=== PATIENT | male | born 1955 | race Caucasian/White ===

== ENCOUNTER → 2020-12-20 02:52 | Outpatient (CLI) | payer BC, SELFPAY ==
[2020-12-21 18:57] LABS: SARS-CoV-2 RNA PCR Negative
== END ==
PROVIDERS: PCP Family Medicine; Visit Provider Family Medicine
DX: Z20.822 Contact with and (suspected) exposure to COVID-19 (principal)
CPT/HCPCS: C9803; U0003; U0005

== ENCOUNTER 2021-08-30 01:20 | Day surgery (SDC) | payer MEDICARE, SELFPAY ==
[2021-08-26 13:37] VITALS: BMI 28.0
--- NOTE | 2021-08-29 16:07 | PM.HPGS ---
History of Present Illness History of Present Illness Consent: Risks, benefits, and alternatives have been discussed and questions answered. Patient agrees to proceed with procedure. Chief complaint: dysphagia Narrative: Jony August is a 66 year old male who is having increasing difficulty with swallowing. He has a history having an esophageal stricture which was dilated 3 years ago. At that time was dilated up to 20 mm. 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 Review of Systems Review of Systems: All systems reviewed & are unremarkable except as noted in HPI and below PMFSH Past Medical History Medical History Hyperlipidemia Hypertension Inguinal hernia Schatzki's ring Umbilical hernia Surgical History Surgical History History of inguinal hernia repair History of umbilical hernia repair Normal endoscopy Family History Family History Father Patient's father is in good health Hypertension Family history of Parkinson's disease Family history of dementia Mother Family history of malignant neoplasm Social History Social History Smoking status: Never smoker Second hand tobacco smoke exposure: No Alcohol intake: current Drinks per week: 4 Alcohol use details: beer Substance use: never Substance use type: does not use Living arrangements: with family Gender identity (if verbalized by the patient): Male Sexual Orientation (if Verbalized by the Patient): Straight or Heterosexual Spiritual care concerns: No Meds Home Medications and Allergies Home Medications Medication Instructions Recorded Confirmed Type tadalafil 10 mg tablet 10 mg PO DAILY PRN #6 tablet 07/17/20 08/30/21 Rx amlodipine 5 mg tablet 5 mg PO DAILY #90 tablet 02/08/21 08/30/21 Rx omeprazole 40 mg capsule,delayed See Rx Instructions .ROUTE 03/11/21 08/30/21 Rx release .COMPLEX #90 cap carvedilol 12.5 mg tablet 12.5 mg PO BID #180 tablet 03/25/21 08/30/21 Rx lisinopril 20 mg tablet 20 mg PO DAILY #90 tablet 04/02/21 08/30/21 Rx simvastatin 10 mg tablet See Rx Instructions .ROUTE 04/08/21 08/30/21 Rx .COMPLEX #90 tablet tamsulosin 0.4 mg capsule See Rx Instructions .ROUTE 08/30/21 08/30/21 Rx .COMPLEX #90 cap Allergies Allergy/AdvReac Type Severity Reaction Status Date / Time No Known Allergies Allergy Verified 08/30/21 08:12 Exam Resp: Auscultation: clear to auscultation bilaterally Cardio: Rate: regular rate Rhythm: regular rhythm GI: GI Palp: Yes Soft to palpation and No Tenderness to palpation present (GI) Assessment and Plan Assessment and plan (1) Dysphagia: Code(s): R13.10 - Dysphagia, unspecified Status: Acute Assessment and Plan: EGD with possible biopsy or dilatation or cautery.
[2021-08-30 08:14] VITALS: BP 136/77; PULSE 75; RESP 16; TEMP 36.2; O2SAT 99; BMI 28.0
[2021-08-30] MEDS: LACTATED RINGERS 1,000 ML 150 ML IV CONT (08:22)
--- NOTE | 2021-08-30 09:18 | WPDANESEPPF ---
Anes - Initial Pre Proc Eval Procedure: Operation Date: 08/30/21 09:30 Proposed Procedures p Esophagogastroduodenoscopy - Paul Delacruz MD Date/Time: 08/30/21 09:18 Surgeon: Paul Delacruz MD Pre Op Diagnosis: dysphagia Patient Data Age: 66 Gender: M Height: 1.78 m Weight: 88.6 kg Last Vital Signs Temp 97.2 F L 08/30/21 08:14 Pulse 75 08/30/21 08:14 Resp 16 08/30/21 08:14 BP 136/77 08/30/21 08:14 Pulse Ox 99 08/30/21 08:14 Allergies Allergy/AdvReac Type Severity Reaction Status Date / Time No Known Allergies Allergy Verified 08/30/21 08:12 Home Medications Medication Instructions Recorded Confirmed Type tadalafil 10 mg tablet 10 mg PO DAILY PRN #6 tablet 07/17/20 08/30/21 Rx amlodipine 5 mg tablet 5 mg PO DAILY #90 tablet 02/08/21 08/30/21 Rx omeprazole 40 mg capsule,delayed See Rx Instructions .ROUTE 03/11/21 08/30/21 Rx release .COMPLEX #90 cap carvedilol 12.5 mg tablet 12.5 mg PO BID #180 tablet 03/25/21 08/30/21 Rx lisinopril 20 mg tablet 20 mg PO DAILY #90 tablet 04/02/21 08/30/21 Rx simvastatin 10 mg tablet See Rx Instructions .ROUTE 04/08/21 08/30/21 Rx .COMPLEX #90 tablet tamsulosin 0.4 mg capsule See Rx Instructions .ROUTE 08/30/21 08/30/21 Rx .COMPLEX #90 cap Patient hx anesthesia problems: none Family hx anesthesia problems: none Results Review: All pre-operative results and documents have been reviewed as part of the pre-operative evaluation. [facility], [facility] Past Medical History Medical History Hyperlipidemia Hypertension Inguinal hernia Schatzki's ring Umbilical hernia Surgical History Surgical History History of inguinal hernia repair History of umbilical hernia repair Normal endoscopy Family History Family History Father Patient's father is in good health Hypertension Family history of Parkinson's disease Family history of dementia Mother Family history of malignant neoplasm Social History Social History Smoking status: Never smoker Second hand tobacco smoke exposure: No Alcohol intake: current Drinks per week: 4 Alcohol use details: beer Substance use: never Substance use type: does not use Living arrangements: with family Gender identity (if verbalized by the patient): Male Sexual Orientation (if Verbalized by the Patient): Straight or Heterosexual Spiritual care concerns: No Anes - Eval Final PreProcedure Day of Procedure 08/30/21 09:18 Patient weight: obese Heart: regular rate and rhythm Lungs: clear to auscultation Airway: Mallampati scale class II Neurological: alert and oriented Last oral intake: >/= 8 hours ASA classification: III Emergent: no Anesthetic plan: proceed Anesthesia type and monitoring: general GIVS and standard monitoring Results Review: All pre-operative results and documents have been reviewed as part of the pre-operative evaluation. Informed Consent: The patient's anesthetic plan and its attendant risks and benefits were discussed with the patient/family/POA. Questions were solicited and answers provided to the satisfaction of the patient/family/POA.
[2021-08-30 10:20] VITALS: BP 128/94; PULSE 70; RESP 20; O2SAT 100
[2021-08-30 10:30] VITALS: BP 121/88; PULSE 68; RESP 20; O2SAT 98
[2021-08-30 10:40] VITALS: BP 134/89; PULSE 68; RESP 20; O2SAT 100
== END 2021-08-30 10:48 | disposition home or self-care (01) ==
PROVIDERS: PCP Family Medicine; Visit Provider Internal Medicine Gastroenterology
PROC: 0DJ08ZZ Inspection of Upper Intestinal Tract, Via Natural or Artificial Opening Endoscopic (ICD-10-PCS; CPT 43235; principal; 2021-08-30 09:30)
DX: R13.19 Other dysphagia (principal); K22.2 Esophageal obstruction; K20.80 Other esophagitis without bleeding; K44.9 Diaphragmatic hernia without obstruction or gangrene; I10 Essential (primary) hypertension; K40.90 Unilateral inguinal hernia, without obstruction or gangrene, not specified as recurrent; K42.9 Umbilical hernia without obstruction or gangrene
CPT/HCPCS: 43239; 43249; 88305; C1726; J2704; J7120

== ENCOUNTER 2021-11-07 08:35 | Outpatient (CLI) | payer MEDICARE, SELFPAY ==
--- NOTE | 2021-11-28 16:00 | WPDHOMESLEEP ---
Sleep Study - Home Unattended Date of Study: 11/07/21 Ordering Provider: RADHA Reese Interpreting Provider: Amber Ariza MD [facility] Type: Watch MICHELLE Height: 1.78 m Weight: 86.183 kg Body Mass Index: 27.2 Neck Circumference (inches): 17 [place]: 15 Reason for Sleep Study History of sleeping and breathing problems, has used CPAP Sleep History Jony Reza is a 66-year-old man with obstructive sleep apnea syndrome who has been treated with CPAP. He snores loudly without CPAP. He frequently awakens from sleep feeling short of breath when he does not use CPAP. He does not awaken at night with heartburn, belching or coughing. He occasionally has trouble sleeping with a cold. He always wakes up gasping for breath during the night if he does not use CPAP. Constantly has breathing problems at night observed by others. He does not sweat excessively at night. He frequently notices his heart pounding or beating irregularly at night, he frequently falls asleep during the day, frequently falls asleep involuntarily and while driving. He does not have loss of muscle tone with strong emotion. He does not have daytime difficulties due to excessive sleepiness. He does not feel paralyzed on waking or falling asleep and does not have vivid dreamlike scenes upon waking or falling asleep he does not feel afraid to go to sleep. He does not have nightmares. He occasionally remembers his dreams. Frequently has racing thoughts. He occasionally feels sad or depressed. He frequently has anxiety. He does not have muscular tension. He occasionally notices parts of his body jerking. He occasionally kicks at night. He rarely has crawling and aching feelings in his legs. He rarely has any kind of leg pain at night. He does not have morning jaw pain. He constantly grind his teeth. He is not bothered by pain during the day, not awakened by pain during the night, does not wake up feeling stiff in the morning with sore achy muscles and pain in the neck and spine. Without CPAP he has headaches and fatigue. Normal bedtime is 11:00 p.m. falling asleep within 20-30 minutes, typically waking 2-3 times at night to urinate, returning to sleep within 20 minutes. These awakenings occur soon after falling asleep and in the middle the night. Wakes in the morning at 7:30 a.m.. His weekend schedule is the same. He estimates getting 6-8 hours of sleep at night. In general he does not take naps. A short nap may be refreshing. He feels better in the afternoon compared to other times of day. Habits: Never smoked tobacco. Caffeine 3-4 servings a day. Alcohol 3 per week. No recreational substances. [facility] Past Medical History Medical History Hyperlipidemia Hypertension Inguinal hernia Schatzki's ring Umbilical hernia Surgical History Surgical History History of inguinal hernia repair History of umbilical hernia repair Normal endoscopy Family History Family History Father Patient's father is in good health Hypertension Family history of Parkinson's disease Family history of dementia Mother Family history of malignant neoplasm Social History Social History Smoking status: Never smoker Second hand tobacco smoke exposure: No Alcohol intake: current Drinks per week: 4 Alcohol use details: beer Substance use: never Substance use type: does not use Gender identity (if verbalized by the patient): Male Sexual Orientation (if Verbalized by the Patient): Straight or Heterosexual Spiritual care concerns: No Medications Home Medications Medication Instructions Recorded Confirmed Type tadalafil 10 mg tablet (Cialis) 10 mg PO DAILY PRN sexual activity 07/17/20 08/30/21 Rx #6 tabs amlodipine
[2021-11-28 17:38] VITALS: BMI 27.2
--- NOTE | 2021-12-11 11:44 | SLEEP ---
pt has not received apap machine from [facility]
== END 2021-11-08 13:11 | disposition home or self-care (01) ==
LOC: ANHCSM 08:40
PROVIDERS: PCP Family Medicine; Visit Provider Nurse Practitioner Family
DX: G47.33 Obstructive sleep apnea (adult) (pediatric) (principal)
CPT/HCPCS: 95800

== ENCOUNTER 2023-08-28 09:11 | Outpatient (CLI) | payer MEDICARE, SELFPAY ==
--- NOTE | ~2023-08-28 | MR_ITS ---
MRI of the right elbow MEDICAL HISTORY: Pain TECHNIQUE: Proton-density and proton-density fat-sat images were performed in the axial, coronal, and sagittal planes. FINDINGS: Ulnar collateral ligament is intact. Radial collateral ligament and the lateral ulnar colla teral ligament appear intact. There is severe tendinosis and moderate to high-grade interstitial tear ing at the common extensor tendon origin. Common flexor tendon origin is intact. There is diffuse high-grade chondromalacia the elbow joint with subchondral cystic change in the capi tellum and radial head. Probable bony spur present at the coronoid process of the ulna. Large elbow j oint effusion. There is amorphous marrow edema in the proximal ulna, presumably reactive, nonspecific . Biceps, brachialis, and triceps tendons are intact. Visualized muscle bellies are unremarkable. IMPRESSION: Probable moderate degenerative change of the elbow joint with associated large elbow joint effusion. Consider joint aspiration as indicated. Severe tendinosis and moderate to high-grade interstitial tearing at the common extensor tendon origi n at the lateral epicondyle of the humerus. Nonspecific amorphous marrow edema of the proximal ulna, presumably reactive. Reviewed, dictated and finalized at location . IMPRESSION: Probable moderate degenerative change of the elbow joint with associated large elbow joint effusion. Consider joint aspiration as indicated. Severe tendinosis and moderate to high-grade interstitial tearing at the common extensor tendon origin at the lateral epicondyle of the humerus. Nonspecific amorphous marrow edema of the proximal ulna, presumably reactive.
== END 2023-08-28 09:12 ==
LOC: MICIMG 09:12
PROVIDERS: PCP Family Medicine
DX: M67.823 Other specified disorders of tendon, right elbow (principal)
CPT/HCPCS: 73221

== ENCOUNTER 2025-01-16 10:35 | Outpatient (CLI) | payer MEDICARE, SELFPAY ==
--- NOTE | ~2025-01-16 | XR_ITS ---
EXAMINATION: XR elbow LT min 3V, 01/16/2025 10:45 CDT HISTORY: M25.522 - Pain in left elbow COMPARISON: No comparisons available. Findings: No acute fracture or malalignment. Severe degenerative changes Soft tissues unremarkable. Impression: No acute fracture or malalignment. Reviewed, dictated and finalized at location P. Impression: No acute fracture or malalignment.
--- OUTSIDE RECORDS SUMMARY | 2025-01-16 12:00 | XMS_ITS | Clinical Summary ---
Author Organization [facility] Address [address] [place] [address] Care Team Providers Care Roving Tester Laboratory Name Role Phone Carlos Chang MD Primary Care Provider [phone] Source Comments [facility],non-owned Affiliates and Associated Physician Practices is amultiple site organization consisting of ambulatory clinics and hospital sitesin [place], [place], [place]. This disclosure is being madepursuant to the Care Everywhere program and may not contain all information available regarding this patient. Last updated 18.[facility] Social History Tobacco Use Types Packs/Day Years Used Date Smoking Tobacco: Never Assessed Sex and Gender Information Value Date Recorded Sex Assigned at Not on file Legal Sex Male 11:56 AM [employer] Gender Identity Not on file Sexual Orientation Not on file Plan of Treatment Health Maintenance Due Date Last Done Comments COLOGUARD (AGES 45-75) - COL ON CA SCREENING 1956 COLON MONITORING 1956 COLONOSCOPY - COLON CA SCREENING 1956 CT COLONOGRAPHY - COLON CA SCREENING 1956 Colorectal Cancer Screening 1956 FIT - COLON CA SCREENING 1956 FLEX SIG - COLON CA SCREENING 1956 LIPID TESTING 1956 HEPATITIS C SCREENING 01/12/1974 DTAP/TDAP/TD VACCINES (1 - Tdap) 01/16/1975 PNEUMOCOCCAL VACCINE 50+ (1 of 1 - PCV) 01/16/2006 ZOSTER VACCINE (1 of 2) 01/16/2006 DEPRESSION SCREENING 04/13/2024 COVID-19 VACCINE ( - 2023-2 5 season) 2024 INFLUENZA VACCINE (#1) 2024 Respiratory Syncytial Virus (RSV) Vaccine Pt: or over 60 yrs (1 - 1-dose 75+ series) 01/16/2031 HEPATITIS B VACCINE Aged Out No longe r eligible based on patient's age to complete this topic HIB VACCINE Aged Out No longer eligi ble based on patient's age to complete this topic HPV VACCINE Aged Out No longer eligi ble based on patient's age to complete this topic MENINGOCOCCAL (Group B) VACC INE SHARED DECISION-MAKING Aged Out No longer eligibl e based on patient's age to complete this topic MENINGOCOCCAL GROUPS A/C/Y/W VACCINE Aged Out No longer eligible b ased on patient's age to complete this topic Insurance MEDICARE Care Teams Roving Tester Laboratory Relationship Specialty Start Date End Date Carlos Chang MD [address] [place] [address] PCP - General 10/15/18
== END 2025-01-16 10:36 | disposition home or self-care (01) ==
PROVIDERS: PCP Family Medicine; Visit Provider Physician Assistant Medical
DX: M25.522 Pain in left elbow (principal); G89.29 Other chronic pain
CPT/HCPCS: 73080